=== PATIENT | male | born 1995 | race African-American/Black ===

== ENCOUNTER 2017-05-20 13:37 | Emergency (ER) | payer SELFPAY ==
[~2017-05-20] VITALS: Ht 185.4 cm; Wt 145.0 kg
[2017-05-20 13:45] VITALS: BP 136/71; PULSE 88; RESP 16; TEMP 98.9; O2SAT 99
[2017-05-20] MEDS ORDERED: SODIUM CHLORIDE 0.9% FLUSH 10 ML FLUSH IVF PRN (13:45)
[2017-05-20] MEDS ORDERED: SODIUM CHLOR 0.9% 1000 ML INJ 1,000 ML IV ONE (13:45)
[2017-05-20 13:52] VITALS: O2SAT 97
--- NOTE | 2017-05-20 14:22 | RADRPT ---
EXAM DATE/TIME: 05/20/2017 14:01 [facility] COMPARISON: RIBS RIGHT(W PA CXR MIN 3VWS), July 05, 2016, 0:25. INDICATIONS : Syncope, short of breath. MEDICAL HISTORY : None. SURGICAL HISTORY : None. ENCOUNTER: Initial ACUITY: 1 day PAIN SCORE: 0/10 LOCATION: Bilateral chest FINDINGS: A single view of the chest demonstrates the lungs to be symmetrically aerated without evidence of mas s, infiltrate or effusion. The cardiomediastinal contours are unremarkable. Osseous structures are intact. CONCLUSION: 1. No acute cardiopulmonary findings. Galdino Waldron MD on May 20, 2017 at 14:19 Board Certified Radiologist. This report was verified electronically.
--- NOTE | 2017-05-20 14:37 | PD ---
HPI Chief Complaint: Injury Time Seen by Provider: 13:45 Travel History International Travel<30 days: No Contact w/Intl Traveler<30days: No Traveled to known affect area: No History of Present Illness HPI The patient's 21 years old. He was playing basketball the friend then became dizzy and started to stumble before falling to the ground. He struck the occipital scalp on the ground then lost consciousness for about 10-15 seconds as reported by his friend. EMS reports a heart rate of about 80 on scene with a blood pressure 100 over palpation. Blood glucose was normal. No similar prior episodes have occurred. Patient denies past medical history and denies smoking, alcohol use and drug use. No chest pain shortness of breath nausea vomiting or diaphoresis. No numbness tingling or weakness. PFSH Past Medical History Immunizations Current: No Past Surgical History Appendectomy: Yes Social History Alcohol Use: No Tobacco Use: No Substance Use: No Allergies-Medications (Allergen,Severity, Reaction): Coded Allergies: No Known Allergies (Unverified , 05/20/17) Reported Meds & Prescriptions Reported Meds & Active Scripts Active No Active Prescriptions or Reported Medications Review of Systems Except as stated in HPI: all other systems reviewed are Neg General / Constitutional: No: Chills Cardiovascular: No: Chest Pain or Discomfort, Palpitations, Diaphoresis Respiratory: No: Shortness of Breath Gastrointestinal: No: Nausea Physical Exam Narrative GENERAL: 21-year-old male, no acute distress, BMI 42 SKIN: Warm and dry. HEAD: Atraumatic. Normocephalic. EYES: Pupils equal and round. No scleral icterus. No injection or drainage. ENT: No nasal bleeding or discharge. Mucous membranes pink and moist. NECK: Trachea midline. No JVD. No focal spinal tenderness. CARDIOVASCULAR: Regular rate and rhythm. RESPIRATORY: No accessory muscle use. Clear to auscultation. Breath sounds equal bilaterally. GASTROINTESTINAL: Abdomen soft, non-tender, nondistended. Hepatic and splenic margins not palpable. MUSCULOSKELETAL: Extremities without clubbing, cyanosis, or edema. No obvious deformities. NEUROLOGICAL: Awake and alert. No obvious cranial nerve deficits. Motor grossly within normal limits. Five out of 5 muscle strength in the arms and legs. Normal speech. Patient is ambulatory. Cerebellar function normal. PSYCHIATRIC: Appropriate mood and affect; insight and judgment normal. Data Data Last Documented VS Vital Signs Date Time Temp Pulse Resp B/P (MAP) Pulse Ox O2 Delivery O2 Flow Rate FiO2 05/20/17 13:52 97 Room Air 05/20/17 13:45 98.9 88 16 136/71 (92) Vital signs reviewed Orders Orders Electrocardiogram (05/20/17 13:45) Basic Metabolic Panel (Bmp) (05/20/17 13:45) Complete Blood Count With Diff (05/20/17 13:45) Magnesium (Mg) (05/20/17 13:45) Chest, Single Ap (05/20/17 13:45) Ct Brain W/O Iv Contrast(Rout) (05/20/17 13:45) Ecg Monitoring (05/20/17 13:45) Iv Access Insert/Monitor (05/20/17 13:45) Oximetry (05/20/17 13:45) Sodium Chloride 0.9% Flush (Ns Flush) (05/20/17 13:45) Sodium Chlor 0.9% 1000 Ml Inj (Ns 1000 M (05/20/17 13:45) Labs Laboratory Tests Test 05/20/17 14:10 White Blood Count 6.4 TH/MM3 Red Blood Count 5.35 MIL/MM3 Hemoglobin 14.9 GM/DL Hematocrit 46.2 % Mean Corpuscular Volume 86.2 FL Mean Corpuscular Hemoglobin 27.8 PG Mean Corpuscular Hemoglobin Concent 32.3 % Red Cell Distribution Width 12.5 % Platelet Count 328 TH/MM3 Mean Platelet Volume 7.0 FL Neutrophils (%) (Auto) 60.6 % Lymphocytes (%) (Auto) 27.8 % Monocytes (%) (Auto) 10.5 % Eosinophils (%) (Auto) 0.6 % Basophils (%) (Auto) 0.5 % Neutrophils # (Auto) 3.9 TH/MM3 Lymphocytes # (Auto) 1.8 TH/MM3 Monocytes # (Auto) 0.7 TH/MM3 Eosinophils # (Auto) 0.0 TH/MM3 Basophils # (Auto) 0.0 TH/MM3 CBC Comment DIFF FINAL Differential Comment Blood Urea Nitrogen 12 MG/DL Creatinine 0.95 MG/DL Random Glucose 92 MG/DL Calcium Level 8.8 MG/DL Magnesium Level 2.4 MG/DL Sodium Level 141 MEQ/L Potassium Level 3.7 MEQ/L Chloride Level 108 MEQ/L Carbon Dioxide Level 25.7 MEQ/L Anion Gap 7 MEQ/L Estimat Glomerular Filtration Rate 119 ML/MIN MDM Medical Decision Making Medical Screen Exam Complete: Yes Emergency Medical Condition: Yes Medical Record Reviewed: Yes Differential Diagnosis Syncope, anemia, electrolyte imbalance intracranial hemorrhage arrhythmia Narrative Course EKG reveals a sinus rhythm at a rate of 66 normal axis intervals no preexcitation morphology Last [address] 05/20/17 1345 Signed Impressions: Service Date/Time: Saturday, May 20, 2017 15:04 - CONCLUSION: Normal examination. Immanuel Hutchinson MD Chest X-Ray 05/20/17 1340 Signed Impressions: Service Date/Time: Saturday, May 20, 2017 14:01 - CONCLUSION: 1. No acute cardiopulmonary findings. Galdino Waldron MD CBC & BMP Diagram 05/20/17 14:10 Calcium Level 8.8, Magnesium Level 2.4 The patient is resting comfortably and feels better, is alert and in no distress. The patients results and examination findings were discussed. The repeat examination is unremarkable and benign. The history, exam, diagnostic testing, and current condition do not suggest any significant pathology to warrant further testing, continued ED treatment, admission, or surgical evaluation at this point. The vital signs have been stable. The patient does not have uncontrollable pain, intractable vomiting, or other significant symptoms. The patient's condition is stable and appropriate for discharge. The patient will pursue further outpatient evaluation with a primary care physician or other designated or consulting physician as indicated in the discharge instructions. The patient expressed understanding and was agreeable with this plan. Diagnosis Primary Impression: Syncope and collapse Referrals: [facility] Primary Care Physician Additional Instructions: You have a choice when it comes to health care, and we are glad that you chose [facility]. Hopefully, we have met your expectations on today's visit. You are welcome to return to [facility] at any time, as we are committed to meeting the health care needs of our community. Med/Other Pt SpecificInfo: No Change to Meds Scripts No Active Prescriptions or Reported Meds Disposition: DISCHARGE HOME Condition: Stable Galdino Iyer MD May 20, 2017 14:37
[2017-05-20 14:56] LABS: AUTOMATED NEUTROPHIL # 3.9 TH/MM3 (1.8-7.7); BASOPHIL % 0.5 % (0.0-2.0); EOSINOPHIL % 0.6 % (0.0-4.0); HEMATOCRIT 46.2 % (39.0-51.0); HEMO FLAGS DIFF FINAL; LYMPH % 27.8 % (9.0-44.0); LYMPHOCYTE # 1.8 TH/MM3 (1.0-4.8); MEAN CELL VOLUME 86.2 FL (80.0-100.0); MEAN CORPUSCULAR HEMOGLOBIN 27.8 PG (27.0-34.0); MEAN CORPUSCULAR HGB CONC 32.3 % (32.0-36.0); MONO % 10.5 % (0.0-8.0); NEUT % 60.6 % (16.0-70.0); PLATELET COUNT 328 TH/MM3 (150-450); RED BLOOD COUNT 5.35 MIL/MM3 (4.50-5.90); RED CELL DISTRIBUTION WIDTH 12.5 % (11.6-17.2); WHITE BLOOD COUNT 6.4 TH/MM3 (4.0-11.0)
--- NOTE | 2017-05-20 15:11 | RADRPT ---
EXAM DATE/TIME: 05/20/2017 15:04 [facility] COMPARISON: No previous studies available for comparison. INDICATIONS : Dizziness, syncope playing basketball. Hit head on concrete. RADIATION DOSE: 41.80 CTDIvol (mGy) MEDICAL HISTORY : None SURGICAL HISTORY : None. ENCOUNTER: Initial ACUITY: 1 day PAIN SCALE: 8/10 LOCATION: occipital TECHNIQUE: Multiple contiguous axial images were obtained of the head. Using automated exposure control and adj ustment of the mA and/or kV according to patient size, radiation dose was kept as low as reasonably a chievable to obtain optimal diagnostic quality images. DICOM format image data is available electro nically for review and comparison. FINDINGS: CEREBRUM: The ventricles are normal for age. No evidence of midline shift, mass lesion, hemorrhage or acute in farction. No extra-axial fluid collections are seen. POSTERIOR FOSSA: The cerebellum and brainstem are intact. The 4th ventricle is midline. The cerebellopontine angle i s unremarkable. EXTRACRANIAL: The visualized portion of the orbits is intact. SKULL: The calvaria is intact. No evidence of skull fracture. CONCLUSION: Normal examination. Immanuel Hutchinson MD on May 20, 2017 at 15:10 Board Certified Radiologist. This report was verified electronically.
[2017-05-20 15:33] LABS: BICARBONATE 25.7 MEQ/L (21.0-32.0); MAGNESIUM 2.4 MG/DL (1.5-2.5); POTASSIUM 3.7 MEQ/L (3.5-5.1)
--- NOTE | 2017-05-21 21:01 | EKG ---
Date Performed: 05/20/2017 Time Performed: 14:11:19 PTAGE: 21 years EKG: Sinus rhythm NORMAL ECG PREVIOUS TRACING : 05/20/2017 14.10 DOCTOR: Mick Knox Interpretating Date/Time 05/23/2017 06:37:15
== END 2017-05-20 16:39 | disposition home or self-care (01) ==
LOC: NEPE 13:37
DX: R55 Syncope and collapse (principal)
CPT/HCPCS: 70450; 71010; 80048; 83735; 85025; 93005; 99285; J7030